=== PATIENT | female | born 1990 | race Caucasian/White ===

== ENCOUNTER 2019-04-18 00:02 | Emergency (ER) | payer MEDICAID ==
[~2019-04-18] VITALS: Ht 172.7 cm; Wt 110.8 kg
[2019-04-18] MEDS ORDERED: ACTIVATED CHARCOAL 50 GM/240 ML SOL PO ONE (00:45)
[2019-04-18 01:11] LABS: Basophils # (auto) 0 uL; Basophils % (auto) 0.4 % (0.0-2.0); Eosinophils # (auto) 0.1 uL; Eosinophils % (auto) 1.4 % (0.0-7.0); Hemoglobin 14.1 g/dL (12.2-16.2); Lymphocytes # (auto) 2.1 uL; Lymphocytes % (auto) 33.7 % (10.0-50.0); Mean Corpuscular Hemoglobin 33.3 pg (28.0-32.0); Mean Corpuscular Hgb Conc. 34.3 g/dL (32.0-36.0); Mean Corpuscular Volume 97.3 fL (80.0-100.0); Monocytes # (auto) 0.5 uL; Monocytes % (auto) 7.6 % (0.0-12.0); Neutrophils # (auto) 3.5 uL; Neutrophils % (auto) 56.9 % (37.0-80.0); Nucleated Red Blood Cells % 0.1 %; Platelet Count (auto) 239 10^3/uL (140-450); Red Blood Cells 4.22 10^6/uL (4.0-5.20); Red Cell Distribution Width 14.1 % (11.8-14.3); White Blood Cell 6.1 10^3/uL (4.4-10.8)
[2019-04-18 01:33] LABS: Salicylate 2.3 mg/dL (2.8-20.0)
[2019-04-18 01:35] LABS: Albumin 3.5 g/dL (3.4-5.0); BUN/Creatinine Ratio 13.5; Magnesium 2.4 mg/dL (1.6-2.6); Potassium 3.2 mmol/L (3.5-5.1)
[2019-04-18 01:38] LABS: Bilirubin, Total 0.2 mg/dL (0.2-1.0); Total Protein 6.9 g/dL (6.4-8.2)
[2019-04-18 01:57] LABS: Acetaminophen 94.2 ug/mL (10-30)
[2019-04-18] MEDS ORDERED: SODIUM CHLORIDE 0.9% 1,000 ML IV ONE ×2 (02:15→06:30)
[2019-04-18] MEDS ORDERED: THIAMINE INJ 100 MG in SODIUM CHLORIDE 0.9% 1,000 ML IV ONE (02:15)
[2019-04-18] MEDS ORDERED: THIAMINE 100mg/ml INJ (200mg/2ml VIAL) ONE (03:10)
[2019-04-18 03:36] LABS: Albumin 3.5 g/dL (3.4-5.0); BUN/Creatinine Ratio 11.7; Potassium 3.6 mmol/L (3.5-5.1)
[2019-04-18 03:39] LABS: Bilirubin, Total 0.3 mg/dL (0.2-1.0)
[2019-04-18 06:16] LABS: Urine Pregnacy Test Negative (Negative)
[2019-04-18 06:17] LABS: Urine Bacteria FEW /hpf (None Seen); Urine Blood Negative /uL (Negative); Urine Mucus FEW (None Seen); Urine Specific Gravity 1.025 (1.001-1.035); Urine WBC 4 /hpf (0 - 5)
[2019-04-18 06:32] LABS: Amphetamine Screen, Urine NEGATIVE (NEGATIVE); Barbiturate Scree,Urine NEGATIVE (NEGATIVE); Benzodiazephine Screen, Urine NEGATIVE (NEGATIVE); Cannabinoid Screen, Urine NEGATIVE (NEGATIVE); Cocaine Screen, Urine NEGATIVE (NEGATIVE); Opiate Scree,Urine NEGATIVE (NEGATIVE); Phencyclidine Screen, Urine NEGATIVE (NEGATIVE)
[2019-04-18 07:52] LABS: BUN/Creatinine Ratio 11.8; Potassium 4.1 mmol/L (3.5-5.1)
[2019-04-18 07:54] LABS: Bilirubin, Total 0.2 mg/dL (0.2-1.0); Total Protein 6.1 g/dL (6.4-8.2)
[2019-04-18] MEDS ORDERED: cefTRIAXone 1GM/50ML D5W 50 ML IV ONE (08:15)
[2019-04-18] MEDS ORDERED: THIAMINE 100mg/ml INJ (200mg/2ml VIAL) IM ONE (08:15)
[2019-04-18] MEDS ORDERED: ACETYLCYSTEINE ORAL for CIN 20%(200MG/ML) 4ML PO ONE (09:45)
[2019-04-18 16:25] VITALS: BP 121/76
== END 2019-04-18 16:31 | disposition home or self-care (01) ==
LOC: ER 00:10
DX: T44.7X2A Poisoning by beta-adrenoreceptor antagonists, intentional self-harm, initial encounter (principal); F10.920 Alcohol use, unspecified with intoxication, uncomplicated; Y90.0 Blood alcohol level of less than 20 mg/100 ml; I10 Essential (primary) hypertension; J45.909 Unspecified asthma, uncomplicated; Y92.89 Other specified places as the place of occurrence of the external cause
CPT/HCPCS: 36415; 80053; 80307; 80320; 80329; 81001; 81025; 83735; 85025; 93005; 96365; 96367; 96372; 99284; J0696; J3411; J7040

== ENCOUNTER 2023-02-14 16:47 | Emergency (ER) | payer MEDICAID ==
[~2023-02-14] VITALS: Ht 172.7 cm; Wt 77.1 kg
[2023-02-14 16:50] VITALS: BP 110/75; PULSE 96; RESP 20; O2SAT 99
== END 2023-02-14 18:18 | disposition left against medical advice (07) ==
LOC: ER 16:47
DX: S61.412A Laceration without foreign body of left hand, initial encounter (principal); M79.89 Other specified soft tissue disorders; Z53.21 Procedure and treatment not carried out due to patient leaving prior to being seen by health care provider; W25.XXXA Contact with sharp glass, initial encounter; Y93.89 Activity, other specified; Y92.89 Other specified places as the place of occurrence of the external cause; Y99.8 Other external cause status

== ENCOUNTER 2023-02-16 19:28 | Emergency (ER) | payer MEDICAID ==
[~2023-02-16] VITALS: Ht 172.7 cm; Wt 74.2 kg
[2023-02-17] MEDS ORDERED: KETOROLAC TROMETH 60MG/2ML VIAL IM ONE (00:15)
[2023-02-17] MEDS ORDERED: IBUP-1456 PO (01:11)
[2023-02-17] MEDS ORDERED: CLIN300C70 PO (01:11)
[2023-02-17] MEDS ORDERED: CEPH500C PO (01:11)
[2023-02-17] MEDS ORDERED: cefTRIAXone SOD 1,000 MG VL IM ONE (01:15)
[2023-02-17 01:59] VITALS: BP 129/74; PULSE 76; RESP 18; TEMP 98; O2SAT 96
== END 2023-02-17 02:03 | disposition home or self-care (01) ==
LOC: ER 19:32
DX: L03.011 Cellulitis of right finger (principal); F15.10 Other stimulant abuse, uncomplicated; I10 Essential (primary) hypertension; J45.909 Unspecified asthma, uncomplicated; Z79.1 Long term (current) use of non-steroidal anti-inflammatories (NSAID); Z79.899 Other long term (current) drug therapy
CPT/HCPCS: 73130; 81025; 96372; 99284; J0696; J1885